=== PATIENT | male | born 1990 | race Caucasian/White ===

== ENCOUNTER 2016-10-27 00:06 | Emergency (ER) | payer OTHER ==
[2016-10-27 00:11] VITALS: BP 147/84; BMI 31.3
--- NOTE | 2016-10-27 00:54 | DR.GENAD ---
HPI - PCP Primary Care Physician: NFD - HPI Comment HPI Comment: STARTED WITH A SMALL PUSTULE. GIRLFRIEND OPEN IT. REDNESS AND SWELLING FOLLOWED. NO FEVER. - Complaint/Symptoms Chief Complaint Doctors Comments: PAIN, RED AND SWELLING RT LEG TIMES 3 DAYS. Chief Complaint:: PT HAS LARGE ABCESS ON RT CALF GIRLFRIEND SMASHED A BUMP ON IT LAST WEDNESDAY AND TODAY IT IS RED AND WARM TOO TOUCH - Nurses notes reviewed Nurses Notes Review: Yes - Source History Provided: Patient - Mode of Arrival Mode of Arrival: Ambulatory - Timing Onset of Chief Complaint: 10/23/16 Came on: Suddenly - Duration Duration: Constant Duration: Days - Severity Severity: Moderate PMH - PMH Past Medical History: No Past Surgical History: Yes Surgical History: Ortho Surgery Past Surgical History Comment: RT KNEE - Family History History of Family Medical Conditions: No - Social History Type of Tobacco Use: Cigarettes Alcohol Use: Occasionally Do you use any recreational Drugs:: No Lives With: Family Lives Where: Home - infectious screening In the last 2 months have you had wt loss of >10#?: NO Have you had fever, night sweats or hemotysis?: No Have you traveled outside the country in the last 6 months?: No Isolation: Standard ROS - Review of Systems Constitutional: No Symptoms Reported Eyes: No Symptoms Reported ENTM: No Symptoms Reported Respiratoy: No Symptoms Reported Cardiovascular: No Symptoms Reported Gastrointestinal/Abdominal: No Symptoms Reported Genitourinary: No Symptoms Reported Neurological: No Symptoms Reported Musculoskeletal: Right, Leg Integumentary: Change in Color, Rash, Other (ABSCESS RT LEG) Hematologic/Lymphatic: No Symptoms Reported Endocrine: No Symptoms Reported All Other Systems: Reviewed and Negative PE - Vital Signs Vitals: Temperature 100 F Pulse Rate 84 Respiratory Rate 18 Blood Pressure 147/84 O2 Sat by Pulse Oximetry 97 - General Limitations: No Limitations General Appearance: Alert - Head Head Exam: Normal Inspection - Eyes Eye exam: Normal Appearance - ENT ENT Exam: Normal External Ear Exam External Ear Exam: Normal External Inspection TM/Canal Exam: Bilateral Normal Nose Exam: Normal Nose Exam Mouth Exam: Normal Inspection Throat Exam: Normal Inspection - Neck Neck Exam: Trachea Midline - Chest Chest Inspection: Symmetric Chest Wall Rise - Respiratory Respiratory Exam: Normal Lung Sounds Bilat Respiratory Exam: Bilateral Clear to Auscultation - Cardiovascular Cardiovascular Exam: Regular Rate, Normal Rhythm, Normal Heart Sounds - Abdominal Exam Abdominal Exam: Normal Inspection - Extremities Extremities Exam: Tenderness (RT LED WITH REDNESS.) - Back Back Exam: Normal Inspection - Neurologic Neurological Exam: Alert, Oriented X3 - Psychiatric Psychiatric Exam: Normal Affect, Normal Mood - Skin Skin Exam: Erythema, Other (ABSCESS AND CELLULLITIS RT LEG.) MDM - Differential Diagnosis Differential Diagnosis: ABSCESS, CELLULITIS Course - Treatment Treatment: SEE ORDERS. - Education/Counseling Education/Counseling: Patient, Education Educated On: Diagnosis, Needs for Follow Up Procedures - Incision and Drainage Blade Size: 11 I & D Procedure: betadine prep Progress: I&D DONE. NO PUS DRAIN. CULTURE OBTAINED. - Diagnosis Discharge Problem: Abscess Cellulitis Qualifiers: Site of cellulitis: extremity Site of cellulitis of extremity: lower extremity Laterality: right Qualified Code(s): L03.115 - Cellulitis of right lower limb - Discharge Plan Condition: Stable Prescriptions: Acetaminophen with Codeine [Tylenol/Codeine #3 300-30 mg] 1 tab PO Q6H PRN #12 tab PRN Reason: Pain Ibuprofen [MOTRIN TAB 600 MG *] 600 mg PO TID PRN #20 tab PRN Reason: Pain/Inflammation Sulfamethoxazole-Trimethoprim [BACTRIM DS TAB 800/160 MG *] 1 tab PO BID #20 tab - Follow ups/Referrals Follow ups/Referrals: NFD,None [Primary Care Provider] - 3 days - Instructions Instructions: Abscess, [id number], Blood Transfusion , Cellulitis Additional Instructions: RETURN TO ED IF WORSE.
[2016-10-27] MEDS ORDERED: MOTRIN TAB 600 MG PO ONE ×2 (01:12→01:15)
[2016-10-27] MEDS ORDERED: BACTRIM DS TAB PO ONE ×2 (01:12→01:15)
[2016-10-27] MEDS ORDERED: TYLENOL #3 TAB (W/CODEINE) PO ONE ×2 (01:12→01:15)
[2016-10-27] MEDS ORDERED: NEOSPORIN OINT ONE (01:15)
[2016-10-27] MEDS ORDERED: NEOSPORIN OINT TOP ONE (01:15)
== END 2016-10-27 01:31 | disposition home or self-care (01) ==
LOC: ER 00:06
PROC: 0J9N0ZZ Drainage of Right Lower Leg Subcutaneous Tissue and Fascia, Open Approach (ICD-10-PCS; principal; 2016-10-27)
DX: L03.115 Cellulitis of right lower limb (principal); B95.62 Methicillin resistant Staphylococcus aureus infection as the cause of diseases classified elsewhere
CPT/HCPCS: 10060; 87070; 87075; 87077; 87186; 87205; 99282; 99283